=== PATIENT | female | born 1995 ===

== ENCOUNTER 2018-11-15 17:42 | Emergency (ER) | payer OTHER ==
[2018-11-15 17:51] VITALS: O2SAT 100
[2018-11-15] MEDS ORDERED: Iohexol 240 (50 ml) PO ONE (18:33)
[2018-11-15] MEDS ORDERED: Sodium Chloride 0.9% 1,000 ML IV STA (18:33)
--- NOTE | 2018-11-15 18:49 | ED PDOC ---
HPI: Abdomen Time Seen by Provider: 11/15/18 18:07 Chief Complaint (Nursing): Abdominal Pain Chief Complaint (Provider): Abdominal Pain History Per: Patient History/Exam Limitations: no limitations Onset/Duration Of Symptoms: Days (x5) Current Symptoms Are (Timing): Still Present Additional Complaint(s): 23 year old female presents to the emergency department with a complaint of worsening abdominal pain since 11/11/18. Patient states pain started in upper stomach then radiated diffusely with bloating. She also reports associated nonbloody vomiting due to feeling anxious. Patient denies diarrhea, dysuria, hematuria, shortness of breath, chest pain, new food or drinks, travel, constipation, fever, chills, or taking medications for relief. PCP: none provided Past Medical History Reviewed: Historical Data, Nursing Documentation, Vital Signs Vital Signs: Last Vital Signs Temp 98.3 F 11/15/18 17:48 Pulse 63 11/15/18 17:48 Resp 22 11/15/18 17:48 BP 123/83 11/15/18 17:48 Pulse Ox 100 11/15/18 17:48 - Medical History PMH: No Chronic Diseases - Surgical History Surgical History: No Surg Hx - Family History Family History: States: Unknown Family Hx - Home Medications Home Medications: Ambulatory Orders Medication Instructions Recorded Ciprofloxacin HCl [Cipro] 500 mg PO BID 7 Days tab 11/15/18 Ibuprofen [Motrin] 600 mg PO TID 7 Days tab 11/15/18 Metronidazole [Flagyl] 500 mg PO TID 7 Days tablet 11/15/18 Ondansetron ODT [Zofran ODT] 4 mg PO TID PRN #8 odt 11/15/18 - Allergies Allergies/Adverse Reactions: Allergies Allergy/AdvReac Type Severity Reaction Status Date / Time No Known Allergies Allergy Verified 11/15/18 18:28 Review of Systems ROS Statement: Except As Marked, All Systems Reviewed And Found Negative Constitutional: Negative for: Fever, Chills Respiratory: Negative for: Shortness of Breath Gastrointestinal: Positive for: Vomiting, Abdominal Pain (with bloating). Negative for: Diarrhea, Constipation Genitourinary Female: Negative for: Dysuria, Hematuria Psych: Positive for: Anxiety Physical Exam - Reviewed Nursing Documentation Reviewed: Yes Vital Signs Reviewed: Yes - Physical Exam Appears: Positive for: Non-toxic, No Acute Distress Head Exam: Positive for: ATRAUMATIC, NORMAL INSPECTION, NORMOCEPHALIC Skin: Positive for: Normal Color Eye Exam: Positive for: Normal appearance, EOMI, PERRL ENT: Positive for: Normal ENT Inspection. Negative for: Pharyngeal Erythema Neck: Positive for: Normal Cardiovascular/Chest: Positive for: Regular Rate, Rhythm. Negative for: Murmur Respiratory: Positive for: Normal Breath Sounds. Negative for: Respiratory Distress Gastrointestinal/Abdominal: Positive for: Soft, Tenderness (diffuse) Back: Positive for: Normal Inspection. Negative for: L CVA Tenderness, R CVA Tenderness Extremity: Positive for: Normal ROM (upper/lower) Neurological/Psych: Positive for: Awake, Alert, Oriented - Laboratory Results Result Diagrams: 11/15/18 18:49 11/15/18 18:49 Lab Results: no acute - ECG O2 Sat by Pulse Oximetry: 100 (RA) Pulse Ox Interpretation: Normal - CT Scan/US ct Other Rad Studies (CT/US): Read By Radiologist Other Rad Interpretation: enteritis - Progress ED Course And Treament: 2305: Stable. Pain free. Tolerated PO. Fu with pcp. AAOx3. Medical Decision Making Medical Decision Making: Time: 1817 Initial Plan: * CT ABD/pelvis * Labs * IV fluids * Omnipaque 240 PO * Pepcid IVP * Toradol IVP 1042 CT Abdomen/ pelvis FINDINGS: LUNG BASES: The lung bases appear clear. No pleural effusions are seen. LIVER: Unremarkable. GALLBLADDER AND BILE DUCTS: The gallbladder appears within normal limits. No radioopaque gallstones are seen. No biliary ductal dilatation is evident. PANCREAS: Unremarkable. SPLEEN: Unremarkable. ADRENAL GLANDS: Unremarkable. KIDNEYS, URETERS, AND BLADDER: The kidneys appear within normal limits. There is no hydronephrosis or hydroureter. No urinary calculi are seen. The urinary bladder appeared normal in size and configuration. STOMACH AND BOWEL: Unremarkable appearance of the stomach. Thick walled fluid filled duodenum and loops of jejunum as well as ileum compatible with enteritis. Infectious and inflammatory etiologies are considered. Consider consultation with GI service. No evidence of bowel obstruction. No evidence suggesting enteritis or colitis. APPENDIX: No evidence of acute appendicitis on CT examination. PERITONEUM: No free fluid. No free air. LYMPH NODES: No lymphadenopathy is evident. REPRODUCTIVE: Unremarkable as visualized. VASCULATURE: No evidence of abdominal aortic aneurysm. BONES: No aggressive appearing osseous lesion. No acute osseous pathology evident. IMPRESSION: Enteritis as above. GI consult is recommended. Scribe Attestation: Documented by Yodit Abel, acting as a scribe for Apolinar Navarro MD. Provider Scribe Attestation: All medical record entries made by the Scribe were at my direction and p ersonally dictated by me. I have reviewed the chart and agree that the record accurately reflects my personal performance of the history, physical exam, medical decision making, and the department course for this patient. I have also personally directed, reviewed, and agree with the discharge instructions and disposition. Disposition - Clinical Impression Clinical Impression: Enteritis - Patient ED Disposition Is Patient to be Admitted: No Counseled Patient/Family Regarding: Studies Performed, Diagnosis, Need For Followup, Rx Given - Disposition Referrals: Alexys Barnett MD, PhD [Staff Provider] - 11/18/18 [facility] [place] [Outside] - 11/18/18 Disposition: Routine/Home Disposition Time: 23:13 Condition: STABLE Additional Instructions: Return if not better in 3 days. Prescriptions: Ciprofloxacin HCl [Cipro] 500 mg PO BID 7 Days tab Ibuprofen [Motrin] 600 mg PO TID 7 Days tab Metronidazole [Flagyl] 500 mg PO TID 7 Days tablet Ondansetron ODT [Zofran ODT] 4 mg PO TID PRN #8 odt PRN Reason: Nausea/Vomiting Instructions: Colitis Forms: [facility] ED School/Work Excuse
[2018-11-15 18:56] LABS: BASO # 0.1 K/uL (0.0-0.2); BASO % 0.9 % (0.0-2.0); EOS # 0.2 K/uL (0.0-0.7); EOS % 3.6 % (0.0-4.0); HEMOGLOBIN 13.7 g/dL (12.0-16.0); LYMPH # 2.2 K/uL (1.0-4.3); LYMPH % 35.9 % (20.0-40.0); MEAN CELL VOLUME 90.2 fl (81.0-99.0); MEAN CORPUSCULAR HEMOGLOBIN 31.2 pg (27.0-31.0); MEAN CORPUSCULAR HGB CONC 34.5 g/dL (33.0-37.0); MEAN PLATELET VOLUME 9.9 fl (7.2-11.7); MONO # 0.5 K/uL (0.0-0.8); MONO % 8.8 % (0.0-10.0); NEUT # 3.1 K/uL (1.8-7.0); NEUT % 50.8 % (50.0-75.0); NRBC % 0.1 % (0.0-0.0); RBC 4.39 Mil/uL (3.80-5.20); RED CELL DISTRIBUTION WIDTH 12.3 % (11.5-14.5); WHITE BLOOD COUNT 6.1 K/uL (4.8-10.8)
[2018-11-15] MEDS ORDERED: Iohexol 240 (50 ml) ONE (19:01)
[2018-11-15 19:10] LABS: BLOOD UREA NITROGEN 13 mg/dl (7-17); CALCIUM 9.4 mg/dL (8.4-10.2); GFR NON-AFRICAN AMERICAN > 60; LIPASE 151 U/L (23-300)
[2018-11-15 19:20] LABS: ALB/GLOB RATIO 1.4 (1.0-2.1); ALBUMIN 4.7 g/dL (3.5-5.0); ALT/SGPT 25 U/L (9-52); AST/SGOT 46 U/L (14-36)
[2018-11-15 19:31] LABS: SQUAMOUS EPITHIAL 7 /hpf (0-5); URINE BILIRUBIN NEGATIVE (NEGATIVE); URINE BLOOD NEGATIVE (NEGATIVE); URINE CLARITY CLOUDY (Clear); URINE COLOR YELLOW (YELLOW); URINE GLUCOSE (UA) NEG (NEGATIVE); URINE PROTEIN NEGATIVE (NEGATIVE); URINE UROBILINOGEN 0.2-1.0 mg/dL (0.2-1.0)
[2018-11-15 19:33] LABS: URINE LEUKOCYTE ESTERASE TRACE Leu/uL (Negative)
[2018-11-15] MEDS ORDERED: Iohexol 300 100 ML IJ ONE (21:18)
[2018-11-15] MEDS ORDERED: Sodium Chloride 0.9% 50 ML IV ONE (21:18)
[2018-11-15 23:52] VITALS: BP 110/72; PULSE 68; RESP 18; TEMP 98.2
--- NOTE | 2018-11-16 14:44 | CT ---
PROCEDURE: CT Abdomen and Pelvis with oral and IV contrast. HISTORY: abd pain COMPARISON: None available. TECHNIQUE: Contiguous axial images of the abdomen and pelvis. Oral and IV contrast was administered. Coronal and Sagittal reformats generated and reviewed. Contrast dose: 90 mL Omnipaque 300 IV Radiation dose: Total exam DLP = 239.5 mGy-cm. This CT exam was performed using one or more of the following dose reduction techniques: Automated exposure control, adjustment of the mA and/or kV according to patient size, and/or use of iterative reconstruction technique. FINDINGS: LOWER THORAX: No visible consolidation, pleural effusion, or pneumothorax. LIVER: Unremarkable. GALLBLADDER AND BILE DUCTS: Unremarkable. PANCREAS: Unremarkable. SPLEEN: Unremarkable. ADRENALS: Unremarkable. KIDNEYS AND URETERS: The kidneys enhance symmetrically. No hydronephrosis or obstructing renal calculus. BLADDER: The urinary bladder appears unremarkable. REPRODUCTIVE: Uterus is present. APPENDIX: The appendix is not identified. No secondary signs of acute appendicitis. BOWEL: The stomach is nondistended. The bowel loops appear within normal limits of caliber without evidence of intestinal obstruction. PERITONEUM: No significant free fluid. No definite free air. LYMPH NODES: No bulky lymphadenopathy identified. VASCULATURE: No aortic aneurysm. No atherosclerotic calcification or mural plaque present. BONES: No acute osseous abnormality is detected. OTHER FINDINGS: None. IMPRESSION: No acute findings identified. Preliminary impression was provided by [employer].
== END 2018-11-15 23:40 | disposition home or self-care (01) ==
LOC: H.ER 17:42
DX: K52.9 Noninfective gastroenteritis and colitis, unspecified (principal)
CPT/HCPCS: 74177; 80053; 81003; 81025; 83690; 85025; 96374; 96375; 99284; J1885; J2405; J2765; J7030; Q9966; Q9967